=== PATIENT | female | born 1930 | race Asian ===

== ENCOUNTER 2016-10-05 18:26 | Inpatient (IN) | payer OTHER ==
[~2016-10-05] VITALS: Ht 160 cm; Wt 55.1 kg
[~2016-10-05 18:26] MED LIST: ATEN25 PO; HYDR50 PO; LISI1TAB13 PO; METF500T4 PO; SIMV5TAB6 PO
[2016-10-05] MEDS ORDERED: FOLI1 PO (18:44)
[2016-10-05] MEDS ORDERED: CLON.1 PO (18:44)
[2016-10-05] MEDS ORDERED: FERR-89 PO (18:44)
[2016-10-05] MEDS ORDERED: ASPI-556 PO (18:44)
[2016-10-05] MEDS ORDERED: FAMO20 PO (18:44)
[2016-10-05] MEDS ORDERED: THIA100 PO (18:44)
[2016-10-05] MEDS ORDERED: METO-325 PO (18:44)
[2016-10-05] MEDS ORDERED: VITAD400 PO (18:44)
[2016-10-05] MEDS ORDERED: OCTREOTIDE ACETATE 100 MCG/ML VIAL IVP ONE (18:45)
[2016-10-05] MEDS ORDERED: PANTOPRAZOLE SODIUM 40 MG/VIAL IVP ONE (18:45)
[2016-10-05 19:02] LABS: APPEARANCE,URINE TURBID (CLEAR); GLUCOSE, URINE (UA) NEGATIVE (NEGATIVE); KETONES,URINE NEGATIVE (NEGATIVE); LEUKOCYTE ESTERASE ,URINE LARGE (NEGATIVE); OCCULT BLOOD,URINE TRACE (NEGATIVE); PROTEIN,URINE POS 1+ (NEGATIVE)
[2016-10-05 19:04] LABS: BASOPHILS # (AUTO) 0.05 K/uL (0.00-0.20); BASOPHILS % (AUTO) 0.4 % (0.0-2.0); EOSINOPHILS # (AUTO) 0.11 K/uL (0.00-0.70); EOSINOPHILS % (AUTO) 0.74 % (1.0-6.0); HEMATOCRIT 23.2 % (36-46); HEMOGLOBIN 7.7 g/dL (12.0-16.0); LYMPHOCYTES # (AUTO) 1.8 K/uL (1.0-4.8); LYMPHOCYTES % (AUTO) 12.4 % (22.0-44.0); MEAN CORPUSCULAR HEMOGLOBIN 28.4 pg (26.0-34.0); MEAN CORPUSCULAR HGB CONC 33.1 G/dL (31.0-37.0); MEAN CORPUSCULAR VOLUME 86 fL (80-100); MONOCYTES # (AUTO) 0.8 K/uL (0.1-1.0); MONOCYTES % (AUTO) 5.2 % (2.0-9.0); NEUTROPHILS # (AUTO) 12.1 K/uL (1.8-7.7); NEUTROPHILS % (AUTO) 81.4 % (40.0-70.0); PLATELET COUNT (AUTO) 279 K/uL (150-450); RED CELL DISTRIBUTION WIDTH 16.4 % (11.5-14.5); WHITE BLOOD COUNT (AUTO) 14.9 K/uL (4.5-11.0)
[2016-10-05 19:11] LABS: ADD UA MICROSCOPIC YES
[2016-10-05 19:14] LABS: CALCIUM, TOTAL 8.1 mg/dL (8.8-10.5); CREATININE 2.47 mg/dL (0.60-1.30); POTASSIUM 4.1 mmol/L (3.5-5.1)
[2016-10-05 19:16] LABS: PROTHROMBIN TIME 10.7 SEC (9.4-11.6)
[2016-10-05 19:21] LABS: ALBUMIN 2.7 g/dL (3.4-5.0); BILIRUBIN,TOTAL 0.2 mg/dL (0.1-1.0); TOTAL PROTEIN, SERUM 7.2 g/dL (6.4-8.2)
[2016-10-05 19:22] LABS: SQUAMOUS EPITHELIAL CELL,UR Few /LPF (None Seen); WBC,URINE 51-100 /HPF (0-5)
[2016-10-05] MEDS ORDERED: PANTOPRAZOLE SODIUM 80 MG in SODIUM CHLORIDE 0.9% 500 ML IV SCH (19:30)
[2016-10-05] MEDS ORDERED: ACETAMINOPHEN 325 MG TABLET PO PRN ×2 (20:00→22:45)
[2016-10-05] MEDS ORDERED: SODIUM CHLORIDE 0.9% 1,000 ML IV ONE (20:00)
[2016-10-05] MEDS ORDERED: ONDANSETRON HCL 4 MG/2 ML VIAL IVP PRN ×2 (20:00→22:30)
[2016-10-05] MEDS ORDERED: 0.9% SODIUM CHLORIDE 10 ML SYRINGE IVP PRN (20:00)
[2016-10-05 21:45] VITALS: BP 102/61
[2016-10-05 22:00] VITALS: BP 112/61
[2016-10-05 22:30] VITALS: BP 105/60
[2016-10-05 23:30] VITALS: BP 116/58
[2016-10-05] MEDS ORDERED: PNEUMOCOCCAL VACCINE POLYVALENT 0.5 ML VIAL [PPSV23] IM ONE (23:45)
[2016-10-06] VITALS (15 sets, daily range): BP systolic 116–191; BP diastolic 57–87
[2016-10-06] MEDS: SODIUM CHLORIDE 0.45% 1,000 ML IV SCH ×3 (02:54→19:30)
[2016-10-06 05:10] LABS: HEMOGLOBIN 8.8 g/dL (12.0-16.0)
[2016-10-06] MEDS: PANTOPRAZOLE SODIUM 80 MG in SODIUM CHLORIDE 0.9% 500 ML IV SCH ×2 (05:41→15:51)
[2016-10-06] MEDS: HydrALAZINE HCL 20 MG/ML VIAL IVP PRN ×2 (10:02→18:35)
[2016-10-06] MEDS ORDERED: MIDAZOLAM HCL 5 MG/ML VIAL ONE (11:42)
[2016-10-06] MEDS ORDERED: FentaNYL CITRATE-PF 100 MCG/2 ML VIAL ONE (11:43)
[2016-10-06] MEDS ORDERED: EPINEPHrine 1:10,000 [1 MG/10 ML] SYRINGE ONE (12:28)
[2016-10-06 13:25] LABS: HEMATOCRIT 26.9 % (36-46); HEMOGLOBIN 8.8 g/dL (12.0-16.0)
[2016-10-06] MEDS: FERROUS SULFATE 325 MG EC TABLET PO SCH (18:00)
[2016-10-06] MEDS: CHOLECALCIFEROL (VIT D3) 400 UNITS TABLET PO SCH (18:21)
[2016-10-06] MEDS: THIAMINE HCL 100 MG TABLET PO SCH (18:22)
[2016-10-06] MEDS: FAMOTIDINE 20 MG TABLET PO SCH (18:23)
[2016-10-06] MEDS: FOLIC ACID 1 MG TABLET PO SCH (18:23)
[2016-10-06] MEDS: METOPROLOL SUCCINATE 50 MG ER TABLET PO SCH (18:23)
[2016-10-06 20:24] LABS: HEMATOCRIT 25.6 % (36-46); HEMOGLOBIN 8.5 g/dL (12.0-16.0)
[2016-10-06] MEDS: HydrALAZINE HCL 50 MG TABLET PO SCH (20:54)
[2016-10-07] MEDS: PANTOPRAZOLE SODIUM 80 MG in SODIUM CHLORIDE 0.9% 500 ML IV SCH ×2 (03:03→14:40)
[2016-10-07] MEDS: SODIUM CHLORIDE 0.45% 1,000 ML IV SCH (03:54)
[2016-10-07 05:02] VITALS: BP 160/74
[2016-10-07 06:39] LABS: BASOPHILS % (AUTO) 0.4 % (0.0-2.0); EOSINOPHILS % (AUTO) 1.6 % (1.0-6.0); HEMATOCRIT 24.4 % (36-46); HEMOGLOBIN 7.9 g/dL (12.0-16.0); LYMPHOCYTES # (AUTO) 1.5 K/uL (1.0-4.8); LYMPHOCYTES % (AUTO) 21.8 % (22.0-44.0); MEAN CORPUSCULAR HEMOGLOBIN 28.9 pg (26.0-34.0); MEAN CORPUSCULAR HGB CONC 32.4 G/dL (31.0-37.0); MEAN CORPUSCULAR VOLUME 89 fL (80-100); MONOCYTES # (AUTO) 0.6 K/uL (0.1-1.0); MONOCYTES % (AUTO) 8.1 % (2.0-9.0); NEUTROPHILS # (AUTO) 4.8 K/uL (1.8-7.7); NEUTROPHILS % (AUTO) 68.1 % (40.0-70.0); PLATELET COUNT (AUTO) 209 K/uL (150-450); RED BLOOD CELL COUNT(AUTO) 2.74 MIL/uL (4.00-5.20); RED CELL DISTRIBUTION WIDTH 15.3 % (11.5-14.5)
[2016-10-07 07:17] LABS: CREATININE 2.25 mg/dL (0.60-1.30); MAGNESIUM 1.7 mg/dL (1.80-2.40); PHOSPHORUS 3.7 mg/dL (2.5-4.9); POTASSIUM 4.1 mmol/L (3.5-5.1)
[2016-10-07 07:35] VITALS: BP 182/76
[2016-10-07] MEDS: THIAMINE HCL 100 MG TABLET PO SCH (08:30)
[2016-10-07] MEDS: FOLIC ACID 1 MG TABLET PO SCH (08:30)
[2016-10-07] MEDS: FAMOTIDINE 20 MG TABLET PO SCH (08:30)
[2016-10-07] MEDS: HydrALAZINE HCL 50 MG TABLET PO SCH ×2 (08:30→21:27)
[2016-10-07] MEDS: CHOLECALCIFEROL (VIT D3) 400 UNITS TABLET PO SCH (08:30)
[2016-10-07] MEDS: METOPROLOL SUCCINATE 50 MG ER TABLET PO SCH (08:30)
[2016-10-07] MEDS: FERROUS SULFATE 325 MG EC TABLET PO SCH (08:30)
[2016-10-07] MEDS ORDERED: CloNIDine HCL 0.1 MG TABLET PO SCH (09:00)
[2016-10-07 11:58] VITALS: BP 158/83
[2016-10-07 12:08] LABS: HEMATOCRIT 24.3 % (36-46)
[2016-10-07 18:51] VITALS: BP 152/81
[2016-10-07] MEDS ORDERED: MAGNESIUM SULFATE 2 GM in DEXTROSE 5%-WATER 50 ML IV ONE (19:45)
[2016-10-07] MEDS: PANTOPRAZOLE SODIUM 40 MG/VIAL IVP SCH (21:27)
[2016-10-07 23:58] VITALS: BP 157/86
[2016-10-08 05:06] VITALS: BP 96/65
[2016-10-08 06:37] VITALS: BP 181/71
[2016-10-08 07:06] LABS: BASOPHILS % (AUTO) 0.4 % (0.0-2.0); HEMATOCRIT 22.9 % (36-46); HEMOGLOBIN 7.6 g/dL (12.0-16.0); LYMPHOCYTES # (AUTO) 1.6 K/uL (1.0-4.8); LYMPHOCYTES % (AUTO) 24.2 % (22.0-44.0); MEAN CORPUSCULAR HEMOGLOBIN 29.2 pg (26.0-34.0); MEAN CORPUSCULAR VOLUME 88 fL (80-100); MONOCYTES # (AUTO) 0.5 K/uL (0.1-1.0); MONOCYTES % (AUTO) 7.9 % (2.0-9.0); NEUTROPHILS # (AUTO) 4.3 K/uL (1.8-7.7); NEUTROPHILS % (AUTO) 65.5 % (40.0-70.0); PLATELET COUNT (AUTO) 210 K/uL (150-450); RED BLOOD CELL COUNT(AUTO) 2.59 MIL/uL (4.00-5.20); WHITE BLOOD COUNT (AUTO) 6.6 K/uL (4.5-11.0)
[2016-10-08 07:12] VITALS: BP 181/82
[2016-10-08 07:24] LABS: CALCIUM, TOTAL 8.4 mg/dL (8.8-10.5); CREATININE 2.13 mg/dL (0.60-1.30); POTASSIUM 3.9 mmol/L (3.5-5.1)
[2016-10-08] MEDS: FERROUS SULFATE 325 MG EC TABLET PO SCH (08:18)
[2016-10-08] MEDS: HydrALAZINE HCL 50 MG TABLET PO SCH ×2 (08:19→21:40)
[2016-10-08] MEDS: FOLIC ACID 1 MG TABLET PO SCH (08:19)
[2016-10-08] MEDS: CloNIDine HCL 0.1 MG TABLET PO SCH (08:19)
[2016-10-08] MEDS: METOPROLOL SUCCINATE 50 MG ER TABLET PO SCH (08:20)
[2016-10-08] MEDS: FAMOTIDINE 20 MG TABLET PO SCH (08:20)
[2016-10-08] MEDS: THIAMINE HCL 100 MG TABLET PO SCH (08:21)
[2016-10-08] MEDS: CHOLECALCIFEROL (VIT D3) 400 UNITS TABLET PO SCH (08:22)
[2016-10-08] MEDS: PANTOPRAZOLE SODIUM 40 MG/VIAL IVP SCH ×2 (08:22→21:40)
[2016-10-08 09:23] LABS: MAGNESIUM 2.2 mg/dL (1.80-2.40)
[2016-10-08 11:38] VITALS: BP 128/59
[2016-10-08] MEDS: CIPROFLOXACIN 400 MG/D5% WATER 200 ML IV SCH (14:00)
[2016-10-08 15:05] VITALS: BP 160/78
[2016-10-08] MEDS ORDERED: POTASSIUM CHLORIDE 20 MEQ ER TABLET PO ONE (18:45)
[2016-10-08 19:46] VITALS: BP 166/86
[2016-10-09 01:34] VITALS: BP 170/79
[2016-10-09] MEDS: CIPROFLOXACIN 400 MG/D5% WATER 200 ML IV SCH ×2 (02:57→14:42)
[2016-10-09 04:16] VITALS: BP 158/74
[2016-10-09 07:10] VITALS: BP 158/72
[2016-10-09 07:29] LABS: BASOPHILS % (AUTO) 0.3 % (0.0-2.0); EOSINOPHILS % (AUTO) 2.3 % (1.0-6.0); HEMATOCRIT 22.4 % (36-46); HEMOGLOBIN 7.3 g/dL (12.0-16.0); LYMPHOCYTES # (AUTO) 1.5 K/uL (1.0-4.8); LYMPHOCYTES % (AUTO) 23.9 % (22.0-44.0); MEAN CORPUSCULAR HEMOGLOBIN 28.9 pg (26.0-34.0); MEAN CORPUSCULAR HGB CONC 32.8 G/dL (31.0-37.0); MEAN CORPUSCULAR VOLUME 88 fL (80-100); MONOCYTES # (AUTO) 0.5 K/uL (0.1-1.0); MONOCYTES % (AUTO) 8.4 % (2.0-9.0); NEUTROPHILS % (AUTO) 65.1 % (40.0-70.0); PLATELET COUNT (AUTO) 218 K/uL (150-450); RED BLOOD CELL COUNT(AUTO) 2.54 MIL/uL (4.00-5.20); WHITE BLOOD COUNT (AUTO) 6.2 K/uL (4.5-11.0)
[2016-10-09 07:38] LABS: CALCIUM, TOTAL 8.4 mg/dL (8.8-10.5); CREATININE 2.31 mg/dL (0.60-1.30); POTASSIUM 3.7 mmol/L (3.5-5.1)
[2016-10-09] MEDS: FERROUS SULFATE 325 MG EC TABLET PO SCH (08:10)
[2016-10-09] MEDS: FOLIC ACID 1 MG TABLET PO SCH (08:11)
[2016-10-09] MEDS: FAMOTIDINE 20 MG TABLET PO SCH (08:11)
[2016-10-09] MEDS: CHOLECALCIFEROL (VIT D3) 400 UNITS TABLET PO SCH (08:11)
[2016-10-09] MEDS: PANTOPRAZOLE SODIUM 40 MG/VIAL IVP SCH (08:11)
[2016-10-09] MEDS: METOPROLOL SUCCINATE 50 MG ER TABLET PO SCH (08:12)
[2016-10-09] MEDS: HydrALAZINE HCL 50 MG TABLET PO SCH (08:12)
[2016-10-09] MEDS: THIAMINE HCL 100 MG TABLET PO SCH (08:13)
[2016-10-09 11:09] VITALS: BP 152/70
[2016-10-09] MEDS: CloNIDine HCL 0.1 MG TABLET PO SCH (11:49)
[2016-10-09 15:06] VITALS: BP 153/72
[2016-10-09] MEDS ORDERED: CIPR500S4 PO (15:10)
[2016-10-09] MEDS ORDERED: CIPR-279 PO (15:11)
== END 2016-10-09 16:05 | disposition home or self-care (01) | DRG 377 ==
LOC: EMS 18:30 → ICU 20:10 → 5S 10-06 15:30 → 5N 10-06 15:45
PROVIDERS: ADMIT Family Medicine; ATTEND Family Medicine
PROC: 3E0234Z Introduction of Serum, Toxoid and Vaccine into Muscle, Percutaneous Approach (ICD-10-PCS; 2016-10-06)
PROC: 3E0G8GC Introduction of Other Therapeutic Substance into Upper GI, Via Natural or Artificial Opening Endoscopic (ICD-10-PCS; principal; 2016-10-06 13:30)
DX: K25.4 Chronic or unspecified gastric ulcer with hemorrhage (principal); G92 Toxic encephalopathy; E44.1 Mild protein-calorie malnutrition; N39.0 Urinary tract infection, site not specified; E11.22 Type 2 diabetes mellitus with diabetic chronic kidney disease; D50.0 Iron deficiency anemia secondary to blood loss (chronic); N18.9 Chronic kidney disease, unspecified; I16.0 Hypertensive urgency; H40.9 Unspecified glaucoma; E78.00 Pure hypercholesterolemia, unspecified; E78.5 Hyperlipidemia, unspecified; I12.9 Hypertensive chronic kidney disease with stage 1 through stage 4 chronic kidney disease, or unspecified chronic kidney disease; B96.20 Unspecified Escherichia coli [E. coli] as the cause of diseases classified elsewhere; Z79.82 Long term (current) use of aspirin; Z87.440 Personal history of urinary (tract) infections; Z98.890 Other specified postprocedural states; Z79.899 Other long term (current) drug therapy; Z23 Encounter for immunization; Z68.21 Body mass index [BMI] 21.0-21.9, adult
CPT/HCPCS: 71020; 82271; 83735; 84100; 85014; 85018; 86850; 86900; 86901; 86920; 87081; 87086; 90471; 93005; 96365; 96374; 96375; 99291; C9113; J0171; J0360; J0744; J2250; J2354; J3010; J3475; J7040; J7060; P9016